=== PATIENT | female | born 1975 | race Caucasian/White ===

== ENCOUNTER 2016-11-29 11:59 | Emergency (ER) | payer OTHER ==
[~2016-11-29] VITALS: Ht 162.6 cm; Wt 47.7 kg
[~2016-11-29 11:59] MED LIST: CLIN-78 PO; CLOB15OI2 TP
[2016-11-29 12:11] VITALS: BP 132/91; PULSE 94; RESP 15; O2SAT 100
--- NOTE | 2016-11-29 13:43 | ED.REPORT ---
HPI-Extremity Problem Upper Date of Service Nov 29, 2016 ED Provider: Yanick Hoang PA-C Manju is a 41-year-old female presenting to the emergency department for concern for an infection in her left hand. Patient reports getting a sliver of cedar left ring finger last night. This morning she reports swelling in the finger to the point she felt necessary to cut her ring off. She also complains of pain and swelling in her left wrist. She reports a remote history of heroin use 16 years ago. Denies fevers, shaking chills, abdominal pain, vomiting. Nursing Notes Stated Complaint: HAND INFECTION Chief Complaint: Skin Rash/Abscess Nursing Notes Reviewed: Yes Allergies: Coded Allergies: Penicillins (Verified Allergy, Unknown, 08/09/14) Sulfa (Sulfonamide Antibiotics) (Verified Allergy, Unknown, 08/09/14) aspirin (Verified Allergy, Unknown, 08/09/14) iodine (Verified Allergy, Unknown, 08/09/14) latex (Verified Allergy, Unknown, 08/09/14) Uncoded Allergies: NARCOTICS (Adverse Reaction, Unknown, 08/09/14) Scheduled Clindamycin (Clindamycin) 300 Mg Capsule 300 MG PO QID Clindamycin (Clindamycin) 300 Mg Capsule 300 MG PO QID Clobetasol Propionate (Clobetasol Propionate) 15 Gm Oint...g. 30 GM TP BID Lactobacillus Acidophilus (Probiotic) 1 Each Capsule 1 EACH PO DAILY General Time Seen by MD: 13:05 Chief Complaint Finger injury left 4 Past Medical History Past Medical History Hx heroin and meth use - recovering Psoriasis Past Surgical History right wrist, left wrist times 2 Smoking History Current Every Day Smoker Social History In recovery: meth and heroin Alcohol Use: Denies alcohol use Drug Use: In recovery Occupation lives with parents Ambulatory Status Independent Review of Systems Review of Systems Note: Negative unless stated otherwise in history of present illness Physical Exam General: Well appearing, well developed, well nourished, no acute distress. Left hand: 1 cm x 1 cm wound on the dorsal aspect of the middle phalanx of the fourth digit with surrounding mild erythema and tenderness. The productive of small amount of serosanguineous fluid. Mild erythema and tenderness over the proximal phalanx of the fourth digit. Mild erythema and tenderness over the ulnar styloid. Full passive range of motion in wrist, MCP PIP and DIP joints. Sensation and brisk capillary refill intact and distal phalanges. Head: Atraumatic, normocephalic. Eyes: No scleral icterus or injection. No discharge. Vision grossly intact. ENT: Voice clear, hearing grossly intact. Respiratory: No respiratory distress, no increased work of breathing. Speaks in complete sentences. Skin: Warm and dry. Neurological: Grossly nonfocal. Psychological: alert and oriented. Speech appropriate, linear and logical. Behavior appropriate. Initial Vital Signs Vital Signs (First) Date Time Temp Pulse Resp B/P Pulse Ox O2 Delivery O2 Flow Rate FiO2 11/29/16 12:11 36.4 94 15 132/91 100 Room Air Normal Interpretation & Diagnostics X-Ray Interpretation Xray Interpretation: PROCEDURE: X-RAY LEFT HAND, MINIMUM THREE VIEWS ([id number]) INDICATIONS: foreign body IMPRESSION: No unexpected radiopaque foreign bodies or underlying bony abnormalities. Interpretation / Wet Read by: Interpret - Radiologist Re-Eval/Medical Decision Med Decision/Clinical Course 41-year-old female presents with chief complaint of a left fourth finger injury and associated infection. Patient reports getting a sliver of [place] in her left ring finger last night. Complains of redness swelling and pain today to the extent that she felt necessary to cut off her ring. She also complains of redness and swelling in her wrist. Denies other complaints and comorbidities such as diabetes, HIV, immunosuppression. She is up-to-date on her tetanus shot. Physical exam reveals a small wound on the middle phalanx of the left ring finger with associated erythema and tenderness. There is erythema and tenderness in the wrist over the ulnar styloid. Full passive range of motion and wrist, MCP PIP and DIP joints. Sensation and brisk capillary refill are intact in the distal phalanges. X-ray is ordered to confirm removal of any significant foreign body. This is negative. I discussed the case with Dr. Wylie, [place] examined the patient. He is not concerned about tenosynovitis. Recommends oral antibiotics (Keflex and Bactrim). I discussed this with the patient, provide emergent return precautions. Advised regarding [id number] analgesia. Advised regarding primary care follow-up, provided emergency return precautions. Patient verbalized understanding of, and consent to, the plan. Discharge & Departure Impression: Primary Impression: Cellulitis Site of cellulitis: extremity Site of cellulitis of extremity: finger Laterality: left Qualified Code: L03.012 - Cellulitis of left finger Disposition: Home Discharge Condition All VS Reviewed: Yes Condition: Stable Patient Instructions: Cellulitis (ED) Additional Instructions: Evaluation for possible infection the emergency department includes interview, physical examination and x-rays. I believe you have cellulitis, and infection of your skin. X-rays do not reveal foreign body. We believe you are stable and safe to be discharged to home. I have given a prescription for clindamycin 300 mg to be taken 4 times a day for 7 days. Please be sure to take every dose. Additionally, I provided a prescription for a probiotic, to help replace the helpful bacteria in your gut. The pain is best treated with 500 mg of naproxen (Aleve) every 12 hours, or 1000 mg of acetaminophen (Tylenol) every 6 hours. These drugs can be taken at the same time for more severe pain. I also recommend elevating the affected limb as much as possible and apply ice 2-3 times a day. Follow-up with your primary care provider in a few days to be sure this is progressing as expected. I have provided a referral if necessary. Return to emergency department for any new or worsening symptoms including increasing pain, swelling or the appearance of pus. Referrals: [facility] Provider for APC: Lalit Wylie MD, Seth PA-C Nov 29, 2016 13:43
--- NOTE | 2016-11-29 13:58 | DRSVH ---
PROCEDURE: X-RAY LEFT HAND, MINIMUM THREE VIEWS ([id number]) INDICATIONS: foreign body TECHNIQUE: 3 views of the hand(s) acquired. COMPARISON: [facility], , HAND MIN 3VW (LT), 03/21/2010, 3:56. FINDINGS: Bones: No fractures or dislocations. Carpal bones are normally aligned. No suspicious bony lesions . Soft tissues: No suspicious soft tissue calcifications. No unexpected radiopaque foreign bodies. IMPRESSION: No unexpected radiopaque foreign bodies or underlying bony abnormalities. Dictated by: Melanie Tovar M.D. on 11/29/2016 at 13:56 Approved by: Melanie Tovar M.D. on 11/29/2016 at 13:57
[2016-11-29] MEDS ORDERED: CLIN-78 PO (14:22)
[2016-11-29] MEDS ORDERED: LACT1CAP65 PO (14:23)
[2016-11-29 14:47] VITALS: BP 133/88; PULSE 85; RESP 18; O2SAT 100
== END 2016-11-29 14:48 | disposition home or self-care (01) ==
LOC: SED 11:59
DX: L03.012 Cellulitis of left finger (principal); W45.8XXA Other foreign body or object entering through skin, initial encounter; Y93.89 Activity, other specified; Y99.8 Other external cause status; Y92.9 Unspecified place or not applicable; F17.200 Nicotine dependence, unspecified, uncomplicated; F11.21 Opioid dependence, in remission; F15.21 Other stimulant dependence, in remission; Z91.040 Latex allergy status; Z88.2 Allergy status to sulfonamides; Z88.1 Allergy status to other antibiotic agents; Z88.6 Allergy status to analgesic agent; Z88.8 Allergy status to other drugs, medicaments and biological substances
CPT/HCPCS: 73130; 96372; 99284; J1885